=== PATIENT | male | born 1990 | race Caucasian/White ===

== ENCOUNTER 2017-07-11 13:55 | Inpatient (IN) | payer OTHER ==
[~2017-07-11] VITALS: Ht 175.2 cm; Wt 71.7 kg
--- NOTE | ~2017-07-11 | EKG ---
[place], [place] ELECTROCARDIOGRAM REPORT NAME: ARINA ROSA UNIT #: [id number] ROOM: [facility] DOCTOR: ROSALIE KC,CONNIE BIRTHDATE: [birth year] DOS: 07/13/2017 TIME: 3:42 a.m. IMPRESSION: 1. Sinus rhythm, sinus tachycardia. 2. Incomplete right bundle-branch block. CONNIE WIGGINS MD CM:EKGRPT:ELECTROCARDIOGRAM REPORT [id number] [id number] CONNIE WIGGINS MD
--- NOTE | ~2017-07-11 | PR ---
[place], [place] PROGRESS NOTE NAME: ARINA ROSA UNIT #: [id number] ROOM: [facility] DOCTOR: JEFFERY ANNE MD,TREVER BIRTHDATE: [birth year] DOS: 07/15/2017 SUBJECTIVE: The patient has been noted without any ongoing acute new respiratory complaints. He has been noted more awake this morning. The medication for sedation including narcotics and others. The patient has been minimal. He was still noted with nocturnal hypoxia. The patient was sleepy, but noted normal oxygen saturation while awake. Arterial blood gas was done yesterday, which were noted as some component of central hypoventilation related to the medication such as benzodiazepines and others. OBJECTIVE: VITAL SIGNS: For the patient which has been recorded shows normal temperature, respiratory rate 15, heart rate 68, blood pressure 113/68, pulse oxygen saturation 2 liters 96% saturation. HEENT: Shows no acute change. NECK: Supple. CARDIOVASCULAR: S1, S2 audible. LUNGS: Without any wheeze or crackles at the present time. ABDOMEN: Soft, nontender. IMPRESSION: 1. Acute hypercapnic respiratory failure. 2. Hypoventilation with history of suspected obstructive sleep apnea disorder. PLAN OF MANAGEMENT: No changes from the pulmonary standpoint, the patient at this time. Continue the patient's current therapy, plan as previously with all other care per usual treatment. Supportive plan of management and therapies. TREVER GIL MD CM:PNTRANS [id number] [id number] TREVER ANNE MD 07/15/17 1335 interface
--- NOTE | ~2017-07-11 | CON ---
[place], [place] REPORT OF CONSULTATION NAME: ARINA ROSA UNIT #: [id number] ROOM: [facility]- DOCTOR: BETTE NINA MD BIRTHDATE: [birth year] DOS: REASON FOR CONSULTATION: I was called for a code blue at 0300 hours. HISTORY OF PRESENT ILLNESS: This 27-year-old male was admitted 2 days ago with alcohol and opiate addiction. He has been on a reduced regimen of medications and was noted to be agitated with subsequent somnolence. He had been in a regular room and was moved to the ICU because of his behaviors. While on the 4th floor, he had received Haldol, Ativan intravenously x 2 doses within the last 2-3 hours and was also on Suboxone. The nurses reported that he was agitated when he arrived in the ICU, refused to take off his clothes, refused to be on the monitor. He subsequently curled up in a ball and fell asleep. He had sonorous respirations that worsened over time and then it was noted that the pattern of the breathing had changed and they went to investigate. The patient was cyanotic and not breathing. He did have palpable pulses, but was unresponsive. When I arrived, he was deeply cyanotic with some agonal breaths. Skin was warm and dry. Pupils in the mid position and reactive to light. Neck was supple. No jugular venous distention. He was being bagged with a bag valve mask with some improvement in color. Air entry was noted bilaterally at the lung bases and there were no adventitious sounds. Nasal airway was placed and the patient's oxygenation improved, color improved and the patient woke up briefly. There were no neurological deficits. He was moving all extremities. He was tachycardic. The quality assurance monitor showed persistent tachycardia without any ectopic activity. The patient's condition is improved. Arterial blood gases were obtained along with 12-lead EKG, portable chest x-ray. CBC differential, BMP and troponin. Chest x-ray showed both lungs to be aerated and no definite infiltrates. A 12-lead EKG showed sinus tachycardia without any acute changes. I recommended avoiding respiratory suppressions ____ for any further changes in respiratory effort, BiPAP if there was concern about oxygenation, leave the nasal airway in place. The patient's physician was advised of the findings and even though the patient's condition was serious, his condition did stabilize while I was in attendance. DIAGNOSIS: Code blue for respiratory arrest. Orders have been written on this patient. No family members were present, but the nurse did tell me she will try to reach the patient's mother. BETTE NINA MD CM:CONSTR:REPORT OF CONSULTATION 0629 07/13/17 0832 interface
--- NOTE | ~2017-07-11 | PR ---
[place], [place] PROGRESS NOTE NAME: ARINA ROSA UNIT #: [id number] ROOM: 415 DOCTOR: JEFFERY ANNE MD,TREVER BIRTHDATE: [birth year] DOS: 07/17/2017 SUBJECTIVE: He has been transferred to a telemetry floor at this time. He was comfortably resting on the bed, has not been noted with any symptoms of chest pain or any hemoptysis. OBJECTIVE: VITAL SIGNS: For the patient, which was recorded. The patient showed the temperature noted as normal. The respiratory rate of the patient recorded as 20, heart rate 64, blood pressure 122/66. Pulse oxygen saturation of the patient recorded as 96% on room air, at rest to 97% saturation. HEENT: Showed no acute change. NECK: Supple. CARDIOVASCULAR: S1, S2 is audible. LUNGS: The patient was noted without any wheezing or crackles at the present time. ABDOMEN: Soft, nontender. IMPRESSION: 1. The patient was being currently noted stable at the present time with the resolution of the acute hypercapnic and hypoxic respiratory failure secondary to central hypoventilation with use of the narcotics and benzodiazepine combination. 2. Suspected obstructive sleep apnea disorder. PLAN OF MANAGEMENT: No changes in the plan of therapy at this time will be necessary. Supportive care, plan of management and therapies. Usual medical management. Outpatient assessment upon discharge for sleep apnea disorder would be considered and advised. TREVER GIL MD CM:PNTRANS [id number] TREVER ANNE MD 07/17/17 1354 interface
--- NOTE | ~2017-07-11 | CON ---
[place], [place] REPORT OF CONSULTATION NAME: ARINA ROSA UNIT #: [id number] ROOM: [facility] DOCTOR: RITA WALLS MD BIRTHDATE: [birth year] DOS: 07/16/2017 CHIEF COMPLAINT: "I feel anxious and I medicate with alcohol." HISTORY OF PRESENT ILLNESS: This is a 27-year-old white male who was admitted to the [facility] for opiate and alcohol withdrawal. He states he had been sober for about a year after enrolling in a 30-day rehab and was living in a sober house and going to meetings; however, he relapsed approximately 4 months prior to this admission when he went back home. He states he has been abusing alcohol since the age of 17 and drinks approximately 1 liter of vodka daily. 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 He was admitted to detox and now is being evaluated for ongoing anxiety. He reports anxiety has been persistent for years and that he uses the drugs to medicate himself for the anxiety. In the past he has found that the major medicine that has worked has been Klonopin. He has been on all the short acting benzos as well as multiple SSRIs. PAST MEDICAL HISTORY: Remarkable for alcohol, heroin and tobacco abuse. MENTAL STATUS: He is alert and oriented. Mood does seem to be fairly euthymic. He endorses multiple symptoms suggestive of an ongoing anxiety disorder. There is no psychosis. There is no karen and memory is intact. DIAGNOSIS: Generalized anxiety disorder. PLAN: The patient states he has been on multiple SSRIs, BuSpar, short-acting benzos and long-acting benzos. I have suggested that he starts Stelazine 1 mg twice daily as a nonaddicting option. He is somewhat cautious about this, stating he wants to read up more on it. I would caution about using Klonopin in somebody who has an addiction issue because even though it is a long-acting benzo, there is a potential for abuse and for tolerance to develop. I would suggest he follow up at [facility] or another facility for some type of psychiatric intervention post-discharge. RITA WALLS MD CM:CONSTR:REPORT OF CONSULTATION 0934 07/16/17 1012 interface
--- NOTE | ~2017-07-11 | CON ---
[place], [place] REPORT OF CONSULTATION NAME: ARINA ROSA UNIT #: [id number] ROOM: [facility] DOCTOR: TREVER GERBER MD BIRTHDATE: [birth year] DOS: 07/14/2017 CONSULTATION REQUESTED BY: Hospitalist services. REASON FOR CONSULTATION: To assess the patient for the current nocturnal hypoxia. HISTORY OF PRESENT ILLNESS: This is a 27-year-old white male patient who has been currently admitted to the hospitalist services under the [facility]. The patient has dependence on the narcotics medication and being managed for that. He had been just given Ativan at the present time. The patient noted somewhat drowsy, but still able to answer some of the questions. The patient has been noted with nocturnal oxygen desaturation. His pulse oxygen saturation described as 70% at nighttime. He has been currently getting oxygen supplementation nasal cannula. The patient admitted with symptoms of having snoring at home for a long period of time and also taking daytime naps. The sleep time for the patient reported from 11:00 p.m. until 7:00 a.m. with a sleep onset in usually 30 minutes. He was denying any symptoms of fatigue. Denies any symptoms of night sweats. The patient was not sure about symptoms of nocturia. He has been noted with respiratory distress, agitation, and decreased consciousness. The patient has been receiving several medications including Ativan and Haldol yesterday. REVIEW OF SYSTEMS: Cannot be accurately completed for the patient because of the patient's current overall medical status with intermittent drowsiness. All the remaining history has been obtained from the patient, review of the medical records of the patient, and some from the patient. PAST MEDICAL HISTORY: Noted with: 1. History of heroin use. 2. Tobacco dependence. The patient was also noted with history of alcohol use. PAST SURGICAL HISTORY: Reported as none. SOCIAL HISTORY: The patient is single, no children. He is consuming alcohol. The patient also chewed tobacco less than a can of tobacco every day. He has been noted with history of heroin use as well. FAMILY HISTORY: No known medical illnesses. HOME MEDICATIONS: Reported use of ProAir, Augmentin, Sinemet for restless legs, clonidine, hydroxyzine, methocarbamol, multivitamin, nicotine replacement patches, and Seroquel for insomnia. DRUG ALLERGIES: No known drug allergies. PHYSICAL EXAMINATION: GENERAL: A 27-year-old white male who has been noted somewhat sleepy, but arousable to vocal commands at the time of the assessment. VITAL SIGNS: Height were recorded on admission by the nursing staff on [place], [place] REPORT OF CONSULTATION NAME: ARINA ROSA UNIT #: [id number] ROOM: [facility] DOCTOR: JEFFERY ANNE MD,TREVER BIRTHDATE: [birth year] 07/11/2017, 5 feet 9 inches, weight of 158 pounds, BMI 23.3. Temperature 99.6 degree Fahrenheit to normal temperature. The respiratory rate ranged between 8-20. Heart rate 85-86. Blood pressure 147/87-156/80. Pulse oxygen saturation at this time on 2-liter nasal cannula was noted between 89-92% saturation, yesterday on 6-liter simple face mask on this patient was 98% saturation. HEENT AND NECK: Limited with class 2 Mallampati airway. Neck was supple. Head was atraumatic. Eyes nonicterus. CARDIOVASCULAR: S1, S2 are audible. LUNGS: At his time, the patient was noted without any wheezing or crackles. ABDOMEN: Soft, flat, nontender, bowel sounds present. EXTREMITIES: No edema. No obvious gross focal deficit noted. CENTRAL NERVOUS SYSTEM: The patient moving upper and lower extremities with the commands. SKIN: No visible lesions or rashes. MUSCULOSKELETAL: No deformities. LABORATORY DATA: CBC on this patient on 07/11/2017 on admission, WBC count 4.7, otherwise normal CBC. PT/INR for this patient on 07/11/2017 was normal. CMP of the patient was noted with normal BUN and creatinine. Albumin 4.7, total protein was elevated at 9.0. Alcohol was noted at 196. Urine drug screen negative for this patient for all the illicit drugs the patient tested. CBC of the patient on 07/12/2017 was noted as normal. ____ the patient on 07/12/2017 normal. CMP for the patient on 07/14/2017 normal except CO2 33. CBC for the patient on 07/14/2017, mild anemia, hemoglobin 12.7, hematocrit 38, otherwise normal CBC. CT scan of the head for the patient, which was done without contrast on 07/13/[address] of the chest for the patient was also done yesterday, with basilar area of atelectasis without any evidence of pulmonary embolism noted. The CT of the chest was personally reviewed. There was no evidence of pulmonary embolism. IMPRESSION: 1. The patient who has been currently noted with nocturnal hypoxia, the patient's hypoxia at this time is most likely related the use of the narcotics on the patient and benzodiazepine with central nervous system suppression. Arterial blood gas of the patient was noted consistent with 07/13/2017, pH of 7.20, pCO2 of 59, pO2 150. 2. Basilar area of atelectasis secondary to impaired secretion clearance. 3. History of tobacco use without any clinical evidence of chronic obstructive pulmonary disease or past history of bronchial asthma unknown. There was no cardiac problem described in this patient resulting in nocturnal hypoxia. 4. Possibility of sleep apnea disorder cannot be completely excluded. PLAN OF MANAGEMENT: Detoxification protocol to be continued by minimizing the use of the narcotics and the benzodiazepine on this patient at higher doses to prevent the central nervous compression. After the patient will be noted awake later on today, arterial blood gas will be done purely on room air to assess the central hypoventilation. Continue nicotine replacement therapy, supportive care, all other plan of management for the patient as well. Usual care. In case of further hypoxia, BiPAP for the hypoventilation for this patient would be beneficial. The dependent atelectasis should resolve for this patient without [place], [place] REPORT OF CONSULTATION NAME: ARINA ROSA UNIT #: [id number] ROOM: [facility] DOCTOR: JEFFERY ANNE MD,TREVER BIRTHDATE: [birth year] any intervention. Bronchodilator may be given in case of any cough. Usual care, other supportive therapy, plan of management. Outpatient assessment for sleep disorder will be done. TREVER GIL MD CM:CONSTR:REPORT OF CONSULTATION 1147 07/15/17 0220 interface
--- NOTE | ~2017-07-11 | PR ---
[place], [place] PROGRESS NOTE NAME: ARINA ROSA UNIT #: [id number] ROOM: [facility] DOCTOR: JEFFERY ANNE MD,TREVER BIRTHDATE: [birth year] DOS: 07/16/2017 SUBJECTIVE: He has been noted comfortable at this time resolution. The hypoxia noted at rest as well nocturnally. The patient was noted fully awake and alert. He has not been noted symptoms of chest pain. OBJECTIVE: VITAL SIGNS: Normal temperature, respiratory rate 20, heart rate 60, blood pressure 120/71, pulse oxygen saturation recorded as 93% to 97% on room air. HEENT: No new change. NECK: Supple. CARDIOVASCULAR: S1, S2 audible. LUNGS: The patient was noted with decreased breath sounds bilaterally. ABDOMEN: Soft and nontender. EXTREMITIES: Without any acute edema. IMPRESSION: 1. Resolution of the hypoxia noted with central hypoventilation related to the benzodiazepines and narcotic medications. 2. Suspected obstructive sleep apnea disorder. 3. History of nicotine abuse as well in the form of the chewing tobacco. PLAN OF MANAGEMENT: From the pulmonary standpoint, no further intervention necessary on the current hospitalization, he could be discharged home and was advised about followup in the office for further assessment. Continuation other supportive therapy, plan of management and care. Usual treatment. Other supportive treatment to be done based on progression of the illness. TREVER GIL MD CM:PNTRANS 1202 1307 TREVER ANNE MD 07/16/17 1308 interface
[~2017-07-11 13:55] MED LIST: ATARAX,VISTARIL50 MG PO; AUGMENTIN 500 M1 TAB PO; CARBIDOPA/LEVOD1 TA1 PO; CLONIDINE HYDR0.1 MG PO; METHOCARBAMOL750 M1 PO; MULTI VITAMINS1 TAB PO; NICODERM C14 MG/24 H TD; PROAIR HFA8.5 GM INH; QUETIAPINE FUMA25 MG PO
[2017-07-11 14:55] VITALS: BP 158/98
--- NOTE | 2017-07-11 14:55 | NUR ---
A 27, admitted to , under the services of ALMAZ Mcgarry DO with a diagnosis of OPIATE AND ALCOHOL WITHDRAWAL. Chief complaint is WITHDRAWAL S/S. Patient arrived VIA AMBULATORY from HOME. Monitor applied. Initial assessment completed. Vital signs taken and recorded. ALMAZ MCGARRY DO notified of admission to the unit. Orders received. See assessment for past medical history, medications and allergies. Patient and/or family oriented to unit. [facility] visitation policy reviewed. Clothing/patient valuable form completed. CHINO JERNIGAN
[2017-07-11 15:11] VITALS: BP 172/110
[2017-07-11 16:00] VITALS: BP 158/98
[2017-07-11 16:03] LABS: BASO % 0.6 % (0.0-1.0); EOS % 0.6 % (1.0-4.0); HEMATOCRIT 46.4 % (42.0-52.0); HEMOGLOBIN 16.3 g/dl (14.0-18.0); LYMPH # 1.5 10*3/uL (1.3-4.4); LYMPH % 31.6 % (27.0-41.0); MEAN CELL VOLUME 95.7 fl (80.0-94.0); MEAN CORPUSCULAR HGB 33.6 pg (27.0-31.0); MEAN CORPUSCULAR HGB CONC 35.1 g/dl (33.0-37.0); MEAN PLATELET VOLUME 9.9 fl (9.6-12.3); MONO # 0.3 10*3/uL (0.1-1.0); MONO % 6.6 % (3.0-9.0); NEUT # 2.8 10*3/uL (2.3-7.9); PLATELET COUNT AUTOMATED 173 10*3/uL (130-400); RED BLOOD COUNT 4.85 10*6/uL (4.50-5.90); RED CELL DISTRI WIDTH 11.9 % (0-14.5); WHITE BLOOD COUNT 4.7 10*3/uL (4.8-10.8)
[2017-07-11 16:10] LABS: INTERNATIONAL NORM RATIO 0.9 (2.0-3.5)
--- NOTE | 2017-07-11 16:15 | NUR ---
ME STAFF SPOKE WITH PATIENT ABOUT REFERRAL OPTIONS. PATIENT STATED THAT HE WANTS TO GO TO A SOBER LIVING FACILITY FOR HIS AFTERCARE PLAN. PATIENT GAVE [facility] HIS OPTION. ME STAFF WILL FOLLOW-UP WITH PATIENT ON THE NEXT BUSINESS DAY. CHERYL LEMONS B.A. [employer]
--- NOTE | 2017-07-11 16:15 | NUR ---
PT C/O ANXIETY. VISTARIL ADMINISTERED. WILL MONITOR FOR EFFECTIVENESS. ENCOURAGED USE OF CALL LIGHT FOR QUESTIONS/NEEDS/CONCERNS.
[2017-07-11 16:17] LABS: ALBUMIN 4.7 gm/dl (3.1-4.5); ALKALINE PHOSPHATASE 92 U/L (45-117); BUN 11 mg/dl (7-24); CHLORIDE 99 mmol/L (98-107); CREATININE 0.76 mg/dL (0.70-1.30); LIPASE 131 U/L (73-393); POTASSIUM 4.3 mmol/L (3.5-5.1); SGOT/AST 31 IU/L (3-35); SGPT/ALT 32 U/L (12-78); SODIUM 136 mmol/L (136-145)
--- NOTE | 2017-07-11 16:22 | NUR ---
SW MEET WITH SON TO DISCUSS SERVICES THAT MAY BE AVAILABLE TO PT. SW PROVIDED INFORMATION ON IN HOME SERVICES WITH [facility] ON AGING, DEPT. [facility], [facility], AND [facility]ISTED LIVING FACILITIES. SW EXPLAINED [facility] AND [facility]IVING [facility]UR[facility] TO SON.
--- NOTE | 2017-07-11 16:30 | NUR ---
PT C/O ABDOMINAL CRAMPING, MUSCLE ACHES, HEADACHE, AND RESTLESS LEGS. BENTYL, IBUPROFEN, REQUIP, AND ROBAXIN ADMINISTERED PO. WILL MONITOR FOR EFFECTIVENESS. ENCOURAGED USE OF CALL LIGHT FOR ALL NEEDS. WILL CONTINUE TO MONITOR PT.
[2017-07-11 16:35] LABS: BILIRUBIN NEGATIVE (NEGATIVE); BLOOD TRACE-LYSED (NEGATIVE); CLARITY CLEAR (CLEAR); COLOR YELLOW (YELLOW); GLUCOSE NEGATIVE (NEGATIVE); KETONE NEGATIVE (NEGATIVE); LEUKO ESTERASE NEGATIVE (NEGATIVE); NITRITE NEGATIVE (NEGATIVE); PH 5.5 (5.0-9.0); UROBILINOGEN 0.2 E.U./dl (0.2-1.0)
[2017-07-11 16:44] LABS: BACTERIA TRACE; RBC 0-2 rbc/hpf (0-2); WBC 0-2 wbc/hpf (0-5)
[2017-07-11 16:47] LABS: URINE AMPHETAMINES < 1000 (1000ng/ml); URINE BARBITURATES < 200 (200ng/ml); URINE BENZODIAZEPINES < 200 (200ng/ml); URINE CANNABINOIDS (THC) < 50 (50ng/ml); URINE COCAINE < 300 (300ng/ml); URINE METHADONE < 300 (300ng/ml); URINE OPIATES < 300 (300ng/ml)
[2017-07-11 16:48] LABS: URINE PHENCYCLIDINE < 25 (25ng/ml)
--- NOTE | 2017-07-11 17:15 | NUR ---
VISTARIL EFFECTIVE. PT SITTING IN ROOM AT THIS TIME, WATCHING TELEVISION.
--- NOTE | 2017-07-11 17:30 | NUR ---
PRN MEDICATION EFFECTIVE PER PATIENT. PT SITTING UP IN BED AT THIS TIME. WILL ENCOURAGE PT TO VOICE ANY NEEDS/CONCERNS.
[2017-07-11 20:00] VITALS: BP 165/95
--- NOTE | 2017-07-11 20:15 | NUR ---
ZOFRAN GIVEN PER PRN ORDER FOR C/O NAUSEA. SEE EMAR. REINFORCED USE OF CALL LIGHT.
--- NOTE | 2017-07-11 20:35 | NUR ---
ATIVAN 0.5 MG PO GIVEN ONE TIME DOSE FOR C/O ANXIETY AND TREMORS. SEE EMAR.
--- NOTE | 2017-07-11 20:56 | NUR ---
NICOTINE GUM GIVEN TO NICOTINE CRAVINGS.
--- NOTE | 2017-07-11 22:32 | NUR ---
PATIENT MEDICATED WITH VISTARIL AND ROBAXIN PER PRN ORDER FOR C/O MUSCLE ACHINESS AND ANXIETY. SEE EMAR. REINFORCED USE OF CALL LIGHT.
[2017-07-12] VITALS: BP 150/86
--- NOTE | 2017-07-12 03:48 | NUR ---
PATIENT MEDICATED WITH ROBAXIN, VISTARIL AND TRAZODONE PER PRN ORDER FOR ANXIETY, ACHINESS AND INABILITY TO SLEEP. SEE EMAR. REINFORCED USE OF CALL LIGHT.
--- NOTE | 2017-07-12 04:06 | NUR ---
PATIENT MEDICATED WITH 0.5 MG PO ATIVAN PER PRN ORDER FOR TREMORS, EXCESSIVE ANXIETY AND PACING . SEE EMAR. REINFORCED USE OF CALL LIGHT.
[2017-07-12 06:12] LABS: BASO % 0.4 % (0.0-1.0); EOS # 0.1 10*3/uL (0.0-0.4); EOS % 0.9 % (1.0-4.0); HEMATOCRIT 43.3 % (42.0-52.0); LYMPH # 1.8 10*3/uL (1.3-4.4); MEAN CORPUSCULAR HGB 34.5 pg (27.0-31.0); MEAN CORPUSCULAR HGB CONC 34.6 g/dl (33.0-37.0); MEAN PLATELET VOLUME 10.2 fl (9.6-12.3); MONO # 0.7 10*3/uL (0.1-1.0); MONO % 10.8 % (3.0-9.0); NEUT # 4.2 10*3/uL (2.3-7.9); NEUT % 61.3 % (47.0-73.0); PLATELET COUNT AUTOMATED 137 10*3/uL (130-400); RED BLOOD COUNT 4.35 10*6/uL (4.50-5.90); WHITE BLOOD COUNT 6.8 10*3/uL (4.8-10.8)
[2017-07-12 06:22] LABS: MEAN CELL VOLUME 99.5 fl (80.0-94.0)
[2017-07-12 06:32] LABS: CREATININE 0.97 mg/dL (0.70-1.30)
[2017-07-12 08:00] VITALS: BP 186/90
--- NOTE | 2017-07-12 08:33 | NUR ---
DR HERNANDES UPDATED ON PT'S BP OF 186/.
--- NOTE | 2017-07-12 08:33 | NUR ---
PT STATES NO CURRENT HOME MEDICATIONS, MED REC UPDATED TO REFLECT.
--- NOTE | 2017-07-12 09:43 | NUR ---
PT MEDICATED WITH ATIVAN 2MG IV FOR DT'S. PT IS ANXIOUS, TREMORING AND PACING IN ROOM. FEELING OF RESTLESSNESS AND ANXIETY PER PT.
--- NOTE | 2017-07-12 10:56 | NUR ---
PT STATED ATIVAN WAS EFFECTIVE FOR ANXIETY AND DT'S, HE WAS ABLE TO FINALLY GET SOME REST.BP RECHECKED AT THIS TIME 162/84. DR MEDERSO IN TO SEE PT AT THIS TIME AND UPDATED ON PT.
[2017-07-12 11:00] VITALS: BP 162/84
[2017-07-12 16:00] VITALS: BP 176/112
--- NOTE | 2017-07-12 16:00 | NUR ---
NOTIFIED BY PA THAT PATIENT'S BP IS 176/112. PATIENT ADMITS TO BEING ANXIOUS. WILL RECHECK BP AFTER MEDICATION FOR ANXIETY HAS TIME TO WORK.
--- NOTE | 2017-07-12 16:07 | NUR ---
Patient reports the following symptoms of withdrawal: ANXIETY, TREMORS, INCREASED BP Patient given scheduled/PRN medication to control withdrawal symptoms. ROUTINE SUBUTEX AND ATIVAN GIVEN. Close observation will be maintained.
[2017-07-12 17:45] VITALS: BP 189/111
--- NOTE | 2017-07-12 17:52 | NUR ---
DR STAUFFER NOTIFIED OF PATIENT'S BP OF 189/111. NEW ORDER RECEIVED FOR HYDRALAZINE 10MG.
--- NOTE | 2017-07-12 19:55 | NUR ---
MEDICATED WITH BENTYL, VISTARIL, & REQUIP FOR S/S OF WITHDRAWL.
--- NOTE | 2017-07-12 20:20 | NUR ---
PT C/O ANXIETY. DR STAUFFER NOTIFIED AND ATIVAN ORDER CHANGED TO 2MG Q2H PRN.
--- NOTE | 2017-07-12 20:35 | NUR ---
MEDICATED WITH ATIVAN PER PRN ORDER FOR C/O AND S/S OF ANXIETY/WITHDRAWL.
--- NOTE | 2017-07-12 22:55 | NUR ---
MEDICATED WITH ATIVAN PER PRN ORDER FOR S/S OF DELIRIUM/WITHDRAWL.
--- NOTE | 2017-07-12 23:58 | NUR ---
DR STAUFFER NOTIFIED OF PATIENTS ELEVATED BP. NEW ORDERS RECEIVED FOR 1X DOSE HYDRALAZINE 10MG IV
[2017-07-13] VITALS (15 sets, daily range): BP systolic 120–177; BP diastolic 64–112
--- NOTE | 2017-07-13 00:51 | NUR ---
MEDICATED WITH PRN ATIVAN ORDERED FOR ANXIETY.
--- NOTE | 2017-07-13 01:36 | NUR ---
PATIENT MEDICATED WITH 1X DOSE OF HYDRALAZINE FOR ELEVATED BP 180S/100S.
--- NOTE | 2017-07-13 01:44 | NUR ---
PATIENT MEDICATED WITH 1X DOSE OF HALDOL PER DOCTOR ORDERS. DOCTOR ALSO ORDERED BENADRYL BUT THE PATIENT IS REFUSING IT AT THIS TIME.
--- NOTE | 2017-07-13 02:00 | NUR ---
PATIENT TRANSFERRED TO ICU WITH ALL BELONGINGS. REPORT GIVEN TO ADDI OSBORNE.
--- NOTE | 2017-07-13 02:00 | NUR ---
PATIENT TRANSFERED TO ICCU, REPORT GIVEN TO ADDI OSBORNE.
--- NOTE | 2017-07-13 02:13 | NUR ---
PT ARRIVED FROM , WALKED BACK BY SECURITY. HE WOULDN'T ENTER THE ROOM, WOULD NOT ALLOW ME TO TAKE HIS BP OR PLACE HIM ON THE MONITOR. HE WAS BECOMING AGITATED, ATTEMPTED TO CALL HIS MOTHER, THEN CALLED HIS FATHER. CARLOS TALKED TO THE FATHER VIA PHONE AND I SPOKE TO THE FATHTER, EXPLAINING WHY PATIENT WAS TRANSFERRED TO THE ICCU. WHILE I WAS SPEAKING WITH THE FATHER THE PATIENT SAT DOWN ON THE FLOOR AND LEANED AGAINST THE DESK AND WAS FALLING ASLEEP. WE WERE ABLE TO CONVINCE HIM TO GET INTO THE BED, BUT HE SAID "NOBODY TOUCH ME". HE IS CURRENTLY IN BED, SLEEPING SOUNDLY, SNORING. HE IS IN FULL VIEW OF STAFF.
--- NOTE | 2017-07-13 02:18 | NUR ---
LATE ENTRY 0040: PATIENT IS PACING DOWN THE CHASE WITH HIS BACK PACK ON. HE LEFT THE FLOOR AND SECURITY FOUND HIM ON THE 1ST FLOOR. HE STATED HE NEVER HAD A HEART MONITOR ON AND DIDNT KNOW WHERE IT WOULD BE. WHEN HE WAS CLEANING OUT HIS BAG IT WAS IN HIS BACK PACK. 0100: HE STATES HE DOES NOT KNOW WHY HE IS HERE OR WHAT IS GOING ON. HE WAS REORIENTED TO THE [facility] AND WAS TOLD HIS MEDICATIONS HE IS ON FOR THE WITHDRAWALS. HE IS VERY CONFUSED AND THINKS HE IS AT A "[facility]" [facility] WHICH HE STATES IS NEAR [facility]. 0130: DR STAUFFER MADE AWARE OF PATIENTS CONFUSION AND CURRENT STATE. NEW ORDRES RECEIVED TO TRANSFER TO ICCU AND MEDICATIONS.
[2017-07-13 03:09] LABS: ABG BASE EXCESS -0.7 mmol/L (-2.0-2.0); ABG HCO3 26.7 mmol/l (22-26); ABG O2 SATURATION 98.8 % (95-97); ARTERIAL BLOOD GAS PCO2 59.4 mmHg (35-45); ARTERIAL BLOOD GAS PH 7.277 (7.35-7.45)
--- NOTE | 2017-07-13 03:23 | NUR ---
AT 0252 RESPIRATIONS BECAME LOUDER AND MORE SONOROUS. IMMEDIATE TO THE BEDSIDE HE'S CYANOTIC AND UNRESPONSIVE WITH AGONAL RESPIRATIONS. CODE NORMAN CALLED. MONITOR SINUS TACHY. INITIAL BP 174/112. A NASO-PHARYNGEAL AIRWAY WAS PLACED/FACE MASK APPLIED. HE REMAINS SOMNOLENT BUT AROUSES TO HIS NAME, HE SQUEEZED MY HAND ON COMMAND AND POINTED TO THE NASAL AIRWAY.
[2017-07-13 03:45] LABS: BASO % 0.3 % (0.0-1.0); EOS % 0.4 % (1.0-4.0); HEMATOCRIT 38.3 % (42.0-52.0); HEMOGLOBIN 13.1 g/dl (14.0-18.0); LYMPH # 1.2 10*3/uL (1.3-4.4); MEAN CELL VOLUME 98.7 fl (80.0-94.0); MEAN CORPUSCULAR HGB 33.8 pg (27.0-31.0); MEAN CORPUSCULAR HGB CONC 34.2 g/dl (33.0-37.0); MEAN PLATELET VOLUME 9.6 fl (9.6-12.3); MONO # 0.5 10*3/uL (0.1-1.0); MONO % 7.3 % (3.0-9.0); NEUT # 5.5 10*3/uL (2.3-7.9); NEUT % 75.6 % (47.0-73.0); RED BLOOD COUNT 3.88 10*6/uL (4.50-5.90); WHITE BLOOD COUNT 7.3 10*3/uL (4.8-10.8)
--- NOTE | 2017-07-13 03:46 | NUR ---
I HAVE TALKED WITH DR STAUFFER AND UPDATED HIM ON THE EVENTS. I HAVE TALKED WITH PT'S MOTHER ALSO. PT AROUSES TO HIS NAME, IS FOLLOWING COMMANDS. EKG HAS BEEN DONE. CXR IS BEING DONE NOW. SEE ALL PERTINENT INTERVENTIONS.
[2017-07-13 04:00] LABS: BUN 13 mg/dl (7-24); CHLORIDE 97 mmol/L (98-107); CREATININE 0.92 mg/dL (0.70-1.30); POTASSIUM 3.6 mmol/L (3.5-5.1); SODIUM 136 mmol/L (136-145)
[2017-07-13 04:02] LABS: PLATELET COUNT AUTOMATED 92 10*3/uL (130-400)
--- NOTE | 2017-07-13 04:35 | NUR ---
SLEEPING WITH FACE MASK/NASOPHARYNGEAL AIRWAY IN PLACE. MONITOR SINUS RHYTHM HR 100-110. PULSE OX 98%. BP 148/69.
--- NOTE | 2017-07-13 05:03 | NUR ---
PT AROUSES TO HIS NAME BY OPENING HIS EYES, SQUEEZES MY HANDS ON COMMAND.
--- NOTE | 2017-07-13 06:23 | NUR ---
PT AROUSES TO HIS NAME. FOLLOWS COMMANDS BUT REMAINS DROWSY AND SEEMS TO DRIFT BACK TO SLEEP. ENCOURAGED HIM TO COUGH, TRIES BUT HAS A WEAK COUGH. HIS SPEECH IS GARBLED BUT HE ASKED "IS IT GOING TO HURT IF I COUGH"? HE SHOOK HIS HEAD "NO" THAT HE DOES NOT REMEMBER COMING BACK TO THE [facility] OR TALKING WITH HIS DAD. I TOLD HIM HIS MOTHER IS COMING THIS MORNING.
--- NOTE | 2017-07-13 06:29 | NUR ---
NASOPHARYNGEAL AIRWAY/FACE MASK REMAINS IN PLACE. PT'S [place] SWE[place] WAS CUT OFF DURING CODE BLUE.
--- NOTE | 2017-07-13 10:58 | NUR ---
ASSISTED TO BEDSIDE TO USE URINAL, UNABLE TO VOID AT THIS POINT
--- NOTE | 2017-07-13 12:49 | NUR ---
bladder scan >200 straight cath per policy for 1200 cc lorna urine, uds sent pt remains unable to stay awake without constant stimulation
--- NOTE | 2017-07-13 13:01 | NUR ---
continues on simple face mask at 6l, pox on ra drops to 88%
[2017-07-13 13:14] LABS: URINE AMPHETAMINES < 1000 (1000ng/ml); URINE BARBITURATES < 200 (200ng/ml); URINE BENZODIAZEPINES > 200 (200ng/ml); URINE CANNABINOIDS (THC) < 50 (50ng/ml); URINE COCAINE < 300 (300ng/ml); URINE METHADONE < 300 (300ng/ml); URINE OPIATES < 300 (300ng/ml)
[2017-07-13 13:15] LABS: URINE PHENCYCLIDINE < 25 (25ng/ml)
--- NOTE | 2017-07-13 14:11 | NUR ---
bolted out of bed, now fully awake, asking about signing hisself out, dr donato called and came to evual as of what prn pt can have
--- NOTE | 2017-07-13 14:57 | NUR ---
LIBRIUM/SUBUTEX RECALCULATED AND RESTARTED
--- NOTE | 2017-07-13 17:00 | NUR ---
GOOD EFFECTIVENESS FROM LIBRIUM/SUBUTEX PT QUIET/NO TREMORS/ANXIETY
--- NOTE | 2017-07-13 18:49 | NUR ---
BENTYL/VISTARIL GIVEN PER REQUEST
--- NOTE | 2017-07-13 19:12 | NUR ---
Shift chart check completed.24 HR chart check completed.
--- NOTE | 2017-07-13 19:40 | NUR ---
ON ASSESSMENT PATIENT WAS GETTING BACK TO BED FROM THE CHAIR, AFTER ATTEMPTING TO USE THE URINAL. HE WAS DROWSY BUT STEADY ON HIS FEET. HE DIDN'T WANT TO WEAR O2 SO HE WAS ON ROOM AIR SITTING IN HIGH LE'S POSITIN IN THE BED. HIS PULSE OX DROPPED TO 84% ON ROOM AIR, NASAL CANNULA APPLIED AT 3L/MIN AND HIS PULSE OX GINA QUICKLY TO 96%. SEE ALL APPROPRIATE INTERVENTIONS.
--- NOTE | 2017-07-13 21:25 | NUR ---
PT HAS BEEN SLEEPING SOUNDLY WITH NASAL O2 ON SINCE BEGINNING OF MY SHIFT. HE HAD VISTARIL AND BENTYL AT 1849 AND THESE HAVE BEEN EFFECTIVE. WILL CONTINUE TO MONITOR FOR WITHDRAWL SYMPTOMS.
--- NOTE | 2017-07-13 22:37 | NUR ---
CONTINUES TO SLEEP SOUNDLY. NO DYSRHYTHMIAS OR RESPIRATORY DISTRESS.
--- NOTE | 2017-07-13 23:14 | NUR ---
2200 DOSE OF LIBRIUM NOT GIVEN DUE TO DROWSINESS.
[2017-07-14] VITALS: BP 138/83
--- NOTE | 2017-07-14 00:03 | NUR ---
PT WOKE UP AFTER SLEEPING SINCE MY SHIFT STARTED. HE STOOD AT THE SIDE OF THE BED AND ATTEMPTED TO VOID. HE INSISTED ON GOING INTO THE BATHROOM AND I HEARD HIM URINATE. I HAD EARLIER HELD HIS 0 DOSE OF LIBRIUM BECAUSE HE WAS SO DROWSY. WHEN HE WOKE UP HE ASKED FOR "SOME MEDS". I GAVE HIM A DESYREL FOR SLEEP. HE THEN HAD A BOWL OF CEREAL AND A CARTON OF CHOCOLATE MILK. HE KEPT ASKING IF HE WAS "ON SCHEDULE FOR MY MEDS" SO I DID THEN GIVE HIM THE 2200 DOSE OF LIBRIUM 50MG.
--- NOTE | 2017-07-14 01:10 | NUR ---
TRAZADONE REPEATED PER PT REQUEST AND HIS SCHEDULED SUBUTEX. HE THEN ASKED IF WE HAD ANYTHING ELSE FOR HIM TO EAT. PROVIDED WITH A BOXED LUNCH.
--- NOTE | 2017-07-14 02:32 | NUR ---
IS LYING QUIETLY ON HIS RIGHT SIDE. O2 IS ON.
[2017-07-14 04:00] VITALS: BP 157/81
[2017-07-14 06:12] LABS: ALBUMIN 3.5 gm/dl (3.1-4.5); BUN 8 mg/dl (7-24); CHLORIDE 99 mmol/L (98-107); CREATININE 0.85 mg/dL (0.70-1.30); POTASSIUM 3.9 mmol/L (3.5-5.1); SGOT/AST 20 IU/L (3-35); SGPT/ALT 24 U/L (12-78); SODIUM 137 mmol/L (136-145); TOTAL PROTEIN 6.9 gm/dL (6.4-8.2)
[2017-07-14 06:13] LABS: ALKALINE PHOSPHATASE 60 U/L (45-117)
[2017-07-14 06:24] LABS: BASO % 0.3 % (0.0-1.0); EOS # 0.1 10*3/uL (0.0-0.4); HEMOGLOBIN 12.7 g/dl (14.0-18.0); LYMPH # 1.4 10*3/uL (1.3-4.4); MEAN CELL VOLUME 101.1 fl (80.0-94.0); MEAN CORPUSCULAR HGB 33.8 pg (27.0-31.0); MEAN CORPUSCULAR HGB CONC 33.4 g/dl (33.0-37.0); MEAN PLATELET VOLUME 10.6 fl (9.6-12.3); MONO # 0.6 10*3/uL (0.1-1.0); MONO % 10.4 % (3.0-9.0); NEUT # 3.8 10*3/uL (2.3-7.9); PLATELET COUNT AUTOMATED 79 10*3/uL (130-400); RED BLOOD COUNT 3.76 10*6/uL (4.50-5.90); RED CELL DISTRI WIDTH 11.8 % (0-14.5)
[2017-07-14 08:00] VITALS: BP 156/80
--- NOTE | 2017-07-14 08:36 | NUR ---
CLAYTARIL FOR ANXIETY, PT COOPERATIVE
--- NOTE | 2017-07-14 09:43 | NUR ---
0.5MG IV ATIVAN FOR TREMORS, DR GIL CONSULTED
--- NOTE | 2017-07-14 10:57 | NUR ---
PT STILL REFUSING [facility] CULTURE
[2017-07-14 12:00] VITALS: BP 126/80
--- NOTE | 2017-07-14 12:50 | NUR ---
OXYGEN TURNED OFF AT 1200 LOWEST DESAT WAS TO 78 WITH PT SLEEPING SATS 90-93 WITH CONSTANT ENCOURAGEMENT TO TAKE DEEP BREATHS PT NOW FULLY AWAKE, ALERT ABGS BEING DRAWN
--- NOTE | 2017-07-14 12:55 | NUR ---
G COMPLETED. SEE INTERVENTION. TOLERATED WELL.
[2017-07-14 13:03] LABS: ABG BASE EXCESS 3.3 mmol/L (-2.0-2.0); ABG HCO3 30.1 mmol/l (22-26); ABG O2 SATURATION 87.4 % (95-97); ARTERIAL BLOOD GAS PCO2 56.8 mmHg (35-45); ARTERIAL BLOOD GAS PH 7.343 (7.35-7.45); ARTERIAL BLOOD GAS PO2 53.9 mmHg (80-90)
--- NOTE | 2017-07-14 13:18 | NUR ---
[facility] RESULTS CALLED TO DR JEFFERY CHAVEZ UPDATED ON HIS RECOMMENDATIONS OF MINIMAL NARCOTICS
--- NOTE | 2017-07-14 13:22 | NUR ---
Shift chart check completed.
--- NOTE | 2017-07-14 14:40 | NUR ---
RESTING QUIETLY AFTER LIBRIUM/SUBUTEX ECHO BEING DONE REMAINS ON 2LNC
--- NOTE | 2017-07-14 15:18 | NUR ---
PATIENT SLEEPING HAVING APNIC PERIODS. RESP RATE 7-9.
[2017-07-14 15:53] VITALS: BP 133/73
--- NOTE | 2017-07-14 19:08 | NUR ---
24 HR chart check completed.
[2017-07-14 19:45] VITALS: BP 139/82
--- NOTE | 2017-07-14 22:05 | NUR ---
SCHEDULED LIBRIUM GIVEN.
--- NOTE | 2017-07-14 23:05 | NUR ---
PATIENT IS ASLEEP. NO SIGNS OF DT'S LIBRIUM EFFECTIVE.
[2017-07-15] VITALS: BP 154/92
--- NOTE | 2017-07-15 01:50 | NUR ---
PATIENT VOMITING IN RESTROOM. VOMITED A LARGE AMOUNT OF BROWN UNDIGESTED FOOD INTO TOILET AND INTO BATHROOM SINK. PATIENT IS CONFUSED ASKING IF [employer] IS LATE FOR WORK. STATES HIS DAD CALLED HIM AND SAID HE NEEDED TO PICK SURYA UP FOR WORK. PATIENT REORIENTED TO ICU. PATIENT IS ORIENTED TO SELF ONLY. C/O NAUSEA AND HEADACHE. UNABLE TO RATE PAIN ON PAIN SCALE. WILL GIVE TYLENOL AND ZOFRAN ORDERED.
--- NOTE | 2017-07-15 01:54 | NUR ---
PRN ZOFRAN AND TYLENOL GIVEN FOR NAUSEA/VOMITING AND HEADACHE. WILL CONTINUE TO MONITOR FOR EFFECTIVENESS.
--- NOTE | 2017-07-15 02:46 | NUR ---
PT IN BED, SLEEPING COMFORTABLY. PT IN NO OBVIOUS DISTRESS AT THIS TIME. PRN TYLENOL AND ZOFRAN EFFECTIVE FOR NAUSEA/VOMITING AND HEADACHE. WILL CONTINUE TO MONITOR.
--- NOTE | 2017-07-15 02:54 | NUR ---
PATIENT ASLEEP. NO SIGNS OF PAIN/NAUSEA. ZOFRAN AND TYLENOL EFFECTIVE.
[2017-07-15 04:00] VITALS: BP 147/79
--- NOTE | 2017-07-15 07:20 | NUR ---
ASSISTED BACK TO BED AFTER VOIDING. VSS. PULSE OX 92% ON ROOM AIR WHEN TALKING BUT FALLING ASLEEP WHILE TALKING AND SATS DROPPED TO 86%. PLACED ON NC2L & SATS UP TO 96%. HEP LOCK SECURE & PATENT. RR CURRENT;Y 12.
[2017-07-15 07:35] VITALS: BP 139/68
--- NOTE | 2017-07-15 07:40 | NUR ---
Shift chart check completed.
--- NOTE | 2017-07-15 08:00 | NUR ---
LARGE GREEN BILE EMESIS - HR UP TO 130. ZOFRAN GIVEN AFTER CALMED DOWN. AMBULATEED TO BATHROOM TO VOID UNABLE TO VOID WITH PEOPLE AROUND
--- NOTE | 2017-07-15 08:55 | NUR ---
NAUSEA BETTER SINCE ZOFRAN BUT MEDICATED WITH VISTARIL AFTER SPEAKING WITH DR GIL PATIENT IS FEELING VERY ANXIOUS & THINKS THIS IS FROM THE ALCOHOL WITHDRAWL.
--- NOTE | 2017-07-15 08:56 | NUR ---
[facility] STAFF WILL CONTINUE TO WORK WITH PATIENT ON HIS AFTERCARE PLAN. CHERYL LEMONS B.A. DRILL BIT SHARPENER
--- NOTE | 2017-07-15 10:10 | NUR ---
SLEEPING AFTER VISTARIL GIVEN FOR C/O CONTINUED ANXIETY. MESSAGE LEFT FOR DR WALLS.
--- NOTE | 2017-07-15 10:20 | NUR ---
SPOKE WITH DR KAVITA HAN ORDERED FOR ANXIETY.
--- NOTE | 2017-07-15 10:25 | NUR ---
PATIENT IS DISCHARGED FROM [facility], HOWEVER [facility] WILL STILL CONTINUE TO FOLLOW-UP WITH PATIENT ABOUT AFTERCARE. CHERYL LEMONS B.A. SITE LEADER
--- NOTE | 2017-07-15 10:29 | NUR ---
DR WALLS CALLED IN AND ORDER RECEIVED FOR GUILLE
--- NOTE | 2017-07-15 11:50 | NUR ---
AWOKE TO TALK WITH DAD BUT THEN BACK TO SLEEP. RR 11-14 WITH O2 ON AT NC2L
--- NOTE | 2017-07-15 15:59 | NUR ---
PATIENT AWOKE FOR ASSESSMENT AND SAID "I FEEL LIKE SHIT" THEN ASKED FOR SOMETHING FOR ANXIETY. HE WAS OFFERED, MALLORIE, GUILLE AGAIN, NOY BUT SAID NO TO ALL OF THEM SAYING THEY DON'T WORK. EXPLAINED THAT THEY WERE NOT GOING TO GIVE HERE ANYTHING THAT HAS A SEDATING EFFECT D/T HIS BREATHING ISSUES & SLEEP APNEA. HE THEN ROLLED OVER & PULLED THE BLANKETS OVER HIS HEAD & SAID THANK YOU.
[2017-07-15 16:00] VITALS: BP 124/67
--- NOTE | 2017-07-15 16:39 | NUR ---
MEDICATED WITH ZOFRAN FOR EMESIS
--- NOTE | 2017-07-15 16:47 | NUR ---
PATIENT CHECKED ON BY THE NURSE AND HE IS REQUESTING ATIVAN. RN ATTEMTED TO EXPLAIN THAT THEY ARE NOT GOING TO GIVE HIM ATIVAN D/T HIS RESP STATUS , SLEEP APNEA & SNORING. ATTEMPTED TO EXPLAIN THAT ATIVAN COULD POSSIBLY CAUSE HIM TO STOP BREATHING LEADING TO THE NEED FOR A VENTILATOR. PER THE PATIENT HE HASN'T SLEPT HOWEVER HE HAS DONE NOTHING BUT SLEEP SINCE 0900. THE PATIENT THEN ASKED "HYPOTHETICALLY I CAN SIGN OUT AND GO TO ANOTHER HOSPITAL?" RN REPLIED THAT DOESN'T MEAN THEY WILL GIVE YOU ATIVAN. HE THEN RESPONDED WITH BUT CAN I LEAVE AND GO TO ANOTHER HOSPITAL & THIS NURSE RESPONDED HYPOTHETICALLY YES. HE SAID OK. DR DOLL MADE AWARE OF POSSIBLE AMA
--- NOTE | 2017-07-15 17:31 | NUR ---
PATIENT LAYING IN BED.
--- NOTE | 2017-07-15 17:44 | NUR ---
ONCE AGAIN OFFERED THE VISTARIL, BUSPAR & ROBAXIN AND WAS TOLD NO. HE SAID THAT IT ISN'T RIGHT TO ALLOW A PATIENT TO BE IN PAIN. HE SAID WE SHOULD GIVE WHAT WORKS FOR THE PATIENT AND RN THEN EXPLAINED THAT IT WOULD BE MALPRACTICE FOR ME TO GIVE HIM SOMETHING THAT I KNOW IS CAUSING DECREASED RESP, DROPPING SATURATIONS AND COULD POSSIBLY LEAD TO INTUBATION. THE PATIENT BECAME FRUSTRATED AND REQUESTED THE PHONE TO ORDER FOOD.
--- NOTE | 2017-07-15 17:46 | NUR ---
KORI IS OFF THE MONITOR AND REFUSING TO CONNECT IT BACK UP.
--- NOTE | 2017-07-15 19:09 | NUR ---
24 HR chart check completed.
[2017-07-15 20:00] VITALS: BP 127/69
[2017-07-16] VITALS: BP 119/56
[2017-07-16 04:00] VITALS: BP 131/70
--- NOTE | 2017-07-16 04:06 | NUR ---
PATIENT IS 87-88% ON ROOM AIR WHILE AWAKE. O2 2L NC REAPPLIED. PATIENT ENCOURAGED TO KEEP CONTINUOUS PULSE OX ON.
[2017-07-16 04:54] LABS: BASO % 0.5 % (0.0-1.0); EOS # 0.1 10*3/uL (0.0-0.4); EOS % 3.6 % (1.0-4.0); HEMATOCRIT 38.5 % (42.0-52.0); HEMOGLOBIN 13.4 g/dl (14.0-18.0); LYMPH # 1.3 10*3/uL (1.3-4.4); LYMPH % 34.5 % (27.0-41.0); MEAN CORPUSCULAR HGB 33.6 pg (27.0-31.0); MEAN CORPUSCULAR HGB CONC 34.8 g/dl (33.0-37.0); MEAN PLATELET VOLUME 10.4 fl (9.6-12.3); MONO # 0.6 10*3/uL (0.1-1.0); MONO % 14.5 % (3.0-9.0); NEUT # 1.8 10*3/uL (2.3-7.9); NEUT % 46.6 % (47.0-73.0); PLATELET COUNT AUTOMATED 98 10*3/uL (130-400); RED BLOOD COUNT 3.99 10*6/uL (4.50-5.90); RED CELL DISTRI WIDTH 11.4 % (0-14.5); WHITE BLOOD COUNT 3.9 10*3/uL (4.8-10.8)
[2017-07-16 04:58] LABS: MEAN CELL VOLUME 96.5 fl (80.0-94.0)
[2017-07-16 05:23] LABS: ALBUMIN 3.6 gm/dl (3.1-4.5); ALKALINE PHOSPHATASE 62 U/L (45-117); BUN 14 mg/dl (7-24); CHLORIDE 95 mmol/L (98-107); CREATININE 0.93 mg/dL (0.70-1.30); POTASSIUM 3.4 mmol/L (3.5-5.1); SGOT/AST 16 IU/L (3-35); SGPT/ALT 23 U/L (12-78); SODIUM 137 mmol/L (136-145); TOTAL PROTEIN 7.6 gm/dL (6.4-8.2)
[2017-07-16 08:00] VITALS: BP 120/71
--- NOTE | 2017-07-16 09:15 | NUR ---
DR WALLS IN TO SEE PT AND I MADE HIM AWARE THAT PT HAS BEEN REFUSING THE BUSPAR THAT WAS ORDERED FOR HIM.
[2017-07-16 12:00] VITALS: BP 99/47
--- NOTE | 2017-07-16 14:14 | NUR ---
PT TRANSFERED TO ROOM 415-2 AT THIS TIME.
[2017-07-16 16:00] VITALS: BP 115/62
--- NOTE | 2017-07-16 16:04 | NUR ---
PT C/O ANXIETY, MADE DR. CHAVEZ AWARE PT REFUSED TO TAKE VISTARIL. REQUESTING ATIVAN,VALIUM OR LIBRIUM. SHE IS GONNA INCREASE VISTARIL.
--- NOTE | 2017-07-16 16:45 | NUR ---
PT MEDICATED WITH VISTARIL PER ONE TIME ORDER, SEE EMAR. CALL LIGHT IN REACH.
--- NOTE | 2017-07-16 17:30 | NUR ---
Patient resting. Responding to scheduled medications with fewer complaints of pain and anxiety.
--- NOTE | 2017-07-16 19:30 | NUR ---
PT. AWAKE, ALERT AND ORIENTED X 3 AT THIS TIME. PT. CURRENTLY IS IN BED WITHOUT ANY C/O CP, SOB, OR W/D SYMPTOMS. LUNGS CLEAR T/O, ON RA. HRR, PPP, NO EDEMA. BS NORMO X 4 QUADS, DENIES NVD. CALL LIGHT WITHIN REACH, BED IN LOWEST POSITION, WHEELS LOCKED.
[2017-07-16 20:00] VITALS: BP 109/56
[2017-07-17] VITALS: BP 113/59
[2017-07-17 06:21] LABS: BUN 17 mg/dl (7-24); CHLORIDE 101 mmol/L (98-107); CREATININE 0.78 mg/dL (0.70-1.30); PHOSPHOROUS 3.6 mg/dL (2.5-4.9); SODIUM 138 mmol/L (136-145)
[2017-07-17 06:26] LABS: BASO % 0.8 % (0.0-1.0); EOS # 0.1 10*3/uL (0.0-0.4); EOS % 3.3 % (1.0-4.0); HEMATOCRIT 38.3 % (42.0-52.0); HEMOGLOBIN 13.6 g/dl (14.0-18.0); LYMPH # 1.7 10*3/uL (1.3-4.4); LYMPH % 43.2 % (27.0-41.0); MEAN CELL VOLUME 97.7 fl (80.0-94.0); MEAN CORPUSCULAR HGB 34.7 pg (27.0-31.0); MEAN CORPUSCULAR HGB CONC 35.5 g/dl (33.0-37.0); MEAN PLATELET VOLUME 10.9 fl (9.6-12.3); MONO # 0.6 10*3/uL (0.1-1.0); MONO % 14.4 % (3.0-9.0); NEUT # 1.5 10*3/uL (2.3-7.9); NEUT % 38.3 % (47.0-73.0); PLATELET COUNT AUTOMATED 121 10*3/uL (130-400); RED BLOOD COUNT 3.92 10*6/uL (4.50-5.90); RED CELL DISTRI WIDTH 11.4 % (0-14.5)
[2017-07-17 08:00] VITALS: BP 112/66
[2017-07-17] MEDS ORDERED: THERA TABLET400 MCG PO (11:06)
[2017-07-17] MEDS ORDERED: ATARAX,VISTARIL50 MG PO (11:06)
[2017-07-17] MEDS ORDERED: NATURE'S BLEND100 M2 PO (11:06)
[2017-07-17] MEDS ORDERED: TRIFLUOPERAZINE2 M1 PO (11:06)
[2017-07-17] MEDS ORDERED: LISINOPRIL5 MG PO (11:06)
[2017-07-17] MEDS ORDERED: NATURE'S BLEND F1 MG PO (11:06)
--- NOTE | 2017-07-17 12:17 | NUR ---
PATIENT WAS REFERRED TO DR. HILL'S OFFICE. [place] STAFF SCHEDULED AN APPOINTMENT FOR PATIENT. PATIENT AGREES AND UNDERSTANDS AFTERCARE PLAM. CHERYL LEMONS B.A. PSYCHIATRY TEACHER
[2017-07-17 16:00] VITALS: BP 102/66
--- NOTE | 2017-07-17 16:41 | NUR ---
Discharge instructions reviewed with patient/family. Patient receptive and verbalizes understanding. Follow-up care arranged. Written instructions given to patient/family. COREEN PILLAI
== END 2017-07-17 16:41 | disposition home or self-care (01) | DRG 896 ==
LOC: ICCU 13:55 → 4E 13:55 → ICCU 07-13 01:33 → 4E 07-16 14:11
PROVIDERS: Emergency Medicine Emergency Medical Services; Hospitalist; Internal Medicine; Internal Medicine Critical Care Medicine; Internal Medicine Nephrology; Student in an Organized Health Care Education/Training Program; ADMIT Internal Medicine
DX: F11.23 Opioid dependence with withdrawal (principal); J96.01 Acute respiratory failure with hypoxia; J96.02 Acute respiratory failure with hypercapnia; F10.232 Alcohol dependence with withdrawal with perceptual disturbance; F17.220 Nicotine dependence, chewing tobacco, uncomplicated; D69.6 Thrombocytopenia, unspecified; F41.1 Generalized anxiety disorder; T42.4X5A Adverse effect of benzodiazepines, initial encounter; T40.605A Adverse effect of unspecified narcotics, initial encounter; D53.9 Nutritional anemia, unspecified; Z83.3 Family history of diabetes mellitus; Z71.6 Tobacco abuse counseling; Z82.49 Family history of ischemic heart disease and other diseases of the circulatory system; Z79.899 Other long term (current) drug therapy; Y92.89 Other specified places as the place of occurrence of the external cause

== ENCOUNTER 2020-02-08 09:02 | Inpatient (IN) | payer OTHER ==
[~2020-02-08] VITALS: Ht 175.2 cm; Wt 70.3 kg
[~2020-02-08 09:02] MED LIST changes: +LISINOPRIL5 MG PO; +NATURE'S BLEND F1 MG PO; +NATURE'S BLEND100 M2 PO; +THERA TABLET400 MCG PO; +TRIFLUOPERAZINE2 M1 PO
[2020-02-08 09:06] VITALS: BP 136/83
[2020-02-08 09:43] LABS: BASO % 0.4 % (0.0-1.0); EOS # 0.1 10*3/uL (0.0-0.4); EOS % 1.8 % (1.0-4.0); HEMATOCRIT 39.6 % (42.0-52.0); LYMPH % 18.5 % (27.0-41.0); MEAN CELL VOLUME 90.8 fl (80.0-94.0); MEAN CORPUSCULAR HGB 30.3 pg (27.0-31.0); MEAN CORPUSCULAR HGB CONC 33.3 g/dl (33.0-37.0); MEAN PLATELET VOLUME 10.5 fl (9.6-12.3); MONO # 0.4 10*3/uL (0.1-1.0); MONO % 7.9 % (3.0-9.0); NEUT % 71.2 % (47.0-73.0); PLATELET COUNT AUTOMATED 90 10*3/uL (130-400); RED BLOOD COUNT 4.36 10*6/uL (4.50-5.90); WHITE BLOOD COUNT 5.6 10*3/uL (4.8-10.8)
--- NOTE | 2020-02-08 09:53 | NUR ---
PATIENT MEETS [facility]. PATIENT REPORTS MARNI HE WANTS TO FOLOW UP WITH AA/NA MEETINGS. [facility] STAFF WILL PROVIDE PATIENT WITH REFERRAL OPTIONS FOR HIS AFTERCARE PLAN. CHERYL LEMONS B.A. IMAGER
[2020-02-08 09:56] LABS: ALBUMIN 3.7 gm/dl (3.1-4.5); ALKALINE PHOSPHATASE 66 U/L (45-117); BUN 13 mg/dl (7-24); CHLORIDE 102 mmol/L (98-107); CREATININE 0.88 mg/dL (0.70-1.30); LIPASE 55 U/L (73-393); POTASSIUM 3.9 mmol/L (3.5-5.1); SGOT/AST 21 IU/L (3-35); SGPT/ALT 25 U/L (12-78); SODIUM 135 mmol/L (136-145)
[2020-02-08 09:57] LABS: ACETAMINOPHEN (TYLENOL) < 5.0 ug/ml (10-30); ETHYL ALCOHOL < 3.0 mg/dl (<3); TROPONIN I < 0.015 ng/ml (<0.045)
[2020-02-08 11:35] VITALS: BP 157/94
[2020-02-08 12:11] LABS: BILIRUBIN NEGATIVE (NEGATIVE); BLOOD NEGATIVE (NEGATIVE); CLARITY CLEAR (CLEAR); COLOR YELLOW (YELLOW); GLUCOSE NEGATIVE (NEGATIVE); KETONE NEGATIVE (NEGATIVE); LEUKO ESTERASE NEGATIVE (NEGATIVE); MUCOUS TRACE; NITRITE NEGATIVE (NEGATIVE); PH 8.5 (5.0-9.0); RBC 0-2 rbc/hpf (0-2); SPECIFIC GRAVITY 1.015 (1.005-1.030); URINE AMPHETAMINES < 1000 (1000ng/ml); URINE BARBITURATES < 200 (200ng/ml); URINE BENZODIAZEPINES < 200 (200ng/ml); URINE CANNABINOIDS (THC) < 50 (50ng/ml); URINE COCAINE < 300 (300ng/ml); URINE METHADONE > 300 (300ng/ml); URINE OPIATES < 300 (300ng/ml); UROBILINOGEN 0.2 E.U./dl (0.2-1.0)
[2020-02-08 12:12] LABS: URINE PHENCYCLIDINE < 25 (25ng/ml)
--- NOTE | 2020-02-08 14:57 | NUR ---
PATIENT COMPLAINING OF INCREASED ANXIETY/AGITATION. VERY SHAKY, TREMORS NOTED ON ASSESSMENT, BEADING SWEAT. MEDICATED WITH IV ATIVAN AT THIS TIME PER ORDER AND ROBAXIN FOR COMPLAINTS OF MUSCLE ACHES. WILL MONITOR FOR EFFECTIVENESS.
--- NOTE | 2020-02-08 15:57 | NUR ---
PATIENT IS MUCH MORE RELAXED AT THIS TIME. STILL COMPLAINS OF SOME RESTLESS LEG SYMPTOMS. OFFERED THE REQUIP BUT PATIENT WANTS TO WAIT A LITTLE BIT ON IT. CALL LIGHT IN REACH AT ALL TIMES.
[2020-02-08 16:00] VITALS: BP 136/88
--- NOTE | 2020-02-08 17:20 | NUR ---
PT C/O INCREASED RESTLESS LEG SYMPTOMS AND REQUESTING PRN MEDICATION. MEDICATED WITH REQUIP PER ORDER. WILL MONITOR FOR EFFECTIVENESS.
--- NOTE | 2020-02-08 18:20 | NUR ---
PER PATIENT, PRN MEDICATION HAS BEEN EFFECTIVE. RELAXED AT THIS TIME. WILL CONTINUE TO MONITOR.
--- NOTE | 2020-02-08 19:13 | NUR ---
PATIENT C/O INCREASED AGITATION. MEDICATED WITH ATIVAN. VERY SHAKEY AT THIS TIME AND RAMBLING. PATIENT ALSO REFUSING TO WEAR RESEARCH TECHNICIAN AT THIS TIME. WILL NOTIFY ONCOMING NURSE.
--- NOTE | 2020-02-08 19:40 | NUR ---
PATIENT RESTING IN BED, BASKET MENDER REAPPLIED. PATIENT APPEARS ANXIOUS. SPEAKING COHERENTLY, ASKING ABOUT NEXT DUE MEDS. WILL MONITOR.
[2020-02-08 20:00] VITALS: BP 149/82
[2020-02-09] VITALS: BP 149/82
[2020-02-09 08:00] VITALS: BP 133/83
--- NOTE | 2020-02-09 08:17 | NUR ---
PATIENT MEDICATED WITH PO VISTARIL & ROBAXIN AT THIS TIME FOR COMPLAINTS OF ANXIETY AND MUSCLE ACHES. WILL MONITOR FOR EFFECTIVENESS.
--- NOTE | 2020-02-09 09:17 | NUR ---
PER PATIENT, PRN MEDICATION HAS BEEN EFFECTIVE.
[2020-02-09 12:00] VITALS: BP 100/62
--- NOTE | 2020-02-09 12:29 | NUR ---
[facility] STAFF IN TO SEE PATIENT. PATIENT'S AFTERCARE PLAN REMAINS THE SAME. PATIENT WILL FOLLOW BACK UP WITH HIS AA/NA MEETINGS. CHERYL LEMONS B.A. TRUCK TECHNICIAN
[2020-02-09 16:00] VITALS: BP 122/68
--- NOTE | 2020-02-09 16:40 | NUR ---
PATIENT LEFT AGAINST MEDICAL ADVICE AT THIS TIME. HEPLOCK DISCONTINUED. PATIENT STATES HE HAS APPT WITH SPONSOR LATER TODAY. NOTIFIED . NOTIFIED SHIFT DIRECTOR DEREK. AMBULATORY OFF FLOOR.
== END 2020-02-09 16:40 | disposition left against medical advice (07) | DRG 770 ==
LOC: ED 09:02 → 4E 09:37 → EDHOLD 09:37 → 4E 09:46
PROVIDERS: Nurse Practitioner Family; ADMIT Family Medicine
DX: F11.23 Opioid dependence with withdrawal (principal); F10.230 Alcohol dependence with withdrawal, uncomplicated; Z53.29 Procedure and treatment not carried out because of patient's decision for other reasons; D64.9 Anemia, unspecified; Z82.49 Family history of ischemic heart disease and other diseases of the circulatory system; Z83.3 Family history of diabetes mellitus